=== PATIENT | female | born 1970 | race Caucasian/White ===

== ENCOUNTER → 2020-05-01 16:05 | Outpatient (CLI) | payer SELFPAY ==
[2020-05-01 17:56] LABS: CPK Total, Creatine Kinase 153 U/L (26-192)
== END ==
PROVIDERS: PCP Internal Medicine; Referring Provider Internal Medicine; Visit Provider Internal Medicine
DX: R07.9 Chest pain, unspecified (principal)
CPT/HCPCS: 36415; 82550; 84484

== ENCOUNTER 2022-01-01 14:27 | Outpatient (CLI) | payer SELFPAY ==
[2022-01-01 16:20] LABS: CRP < 2.90 mg/L (0.0-3.0)
[2022-01-04 09:09] LABS: Endomysial Antibody IgA Negative (Negative)
[2022-01-04 13:16] LABS: Immunoglobulin A 144 mg/dL (87-352); t-Transglutaminase IgA <2 U/mL (0-3)
== END 2022-01-01 23:59 | disposition home or self-care (01) ==
PROVIDERS: PCP Internal Medicine; Referring Provider Internal Medicine Gastroenterology; Visit Provider Internal Medicine Gastroenterology
DX: R63.4 Abnormal weight loss (principal)
CPT/HCPCS: 36415; 82784; 83516; 86140; 86255

== ENCOUNTER 2022-04-29 17:55 | Emergency (ER) | payer SELFPAY ==
[2022-04-29 17:59] VITALS: BP 122/85; PULSE 94; RESP 16; TEMP 36.8; O2SAT 97; BMI 16.9
[2022-04-29 18:46] LABS: Absolute Lymphocyte Count 1.67 X10^3/uL (0.83-4.51); Basophil# 0.03 X10^3/uL; Basophil% 0.4 % (0-1); Eosinophil# 0.36 X10^3/uL; Eosinophils% 5.3 % (0-5); Hematocrit 40.1 % (37-47); Hemoglobin 14.1 g/dL (12.0-15.0); Lymphocyte # 1.67 X10^3/ul (0.83-4.51); Lymphocyte % 24.5 % (19-41); Mean Corp Hgb Conc 35.2 g/dL (32-36); Mean Corpuscular Hgb 32.4 pg (27.0-32.0); Mean Corpuscular Volume 92.2 fL (81-99); Mean Platelet Vol. 9.5 fl (6.2-12.0); Monocyte# 0.73 X10^3/uL; Monocyte% 10.7 % (0-10); NRBC Flagged by Analyzer 0 % (0-5); Neutrophil % 58.7 % (47-70); Platelet Count 420 K/mm3 (150-450); Red Blood Count 4.35 M/mm3 (4.2-5.4); White Blood Count 6.8 K/mm3 (4.4-11.0)
[2022-04-29 18:55] LABS: Erythrocyte Sedimentation Rate 8 mm/hr (0-30)
[2022-04-29 19:06] LABS: ALB/GLOB Ratio 1.1 RATIO (0.9-2.4); AST(SGOT) 24 U/L (15-37); Alanine Aminotransfer ALT/SGPT 52 U/L (13-56); Albumin, Serum 3.5 g/dL (3.2-5.0); Alkaline Phosphatase 63 U/L (45-117); Anion Gap 4 (5-15); BUN 13 mg/dL (7-18); BUN/Creat Ratio 17.7 RATIO (10-20); Calcium,Total 8.9 mg/dL (8.5-10.1); Chloride 108 mmol/L (98-107); Creatinine, Serum 0.74 mg/dL (0.55-1.02); EST Glomerular Filtration Rate 88 mL/min (>60); Est Glom Filt Rate - Afr Amer 106 mL/min (>60); Estimated Creatinine Clearance 60.44 ml/min; Globulin 3.1 g/dL (2.2-4.2); Glucose 138 mg/dL (74-106); Lipase 223 U/L (73-393); Potassium 3.3 mmol/L (3.5-5.1); Protein, Total 6.6 g/dL (6.4-8.2); Sodium Level 140 mmol/L (136-145)
--- NOTE | 2022-04-29 19:10 | ED.VIS.GI ---
HPI HPI - GI History of Present Illness Chief Complaint: Abd Pain Informant: patient Abdominal Pain/Flank Pain Onset: Weeks (3 weeks) Context: Sudden Onset Timing: Continuous Quality: Aching Location: Epigastric Current Severity: Mild Maximum Severity: Moderate Worsened by: Nothing Relieved by: Nothing Nausea/Vomiting/Emesis GI Symptom: Positive for Nausea; Negative for Vomiting Diarrhea/Melena/Hematochezia GI Symptom: Positive for Diarrhea (She had no diarrhea since Friday.) Associated Symptoms Associated Symptoms: Negative for Dysuria, Frequency and Hematuria Narrative Narrative: Patient is a 51-year-old woman with no significant past medical history who presents because of worsening epigastric pain that radiates to the right shoulder. The pain to the right shoulder sharp. She denies intolerance to greasy or fried foods. She denies history of biliary disease. She denies respiratory or cardiac symptoms. She denies black or maroon-colored stool. She denies any change in color, consistency or caliber of her stool prior to the diarrhea or since the diarrhea has stopped. She denies dysuria, frequency, urgency or hematuria. She denies any gynecologic symptoms. There is no alleviating, exacerbating or precipitating factors. Prior similar symptoms: Yes Recent Illness/Hospitalization: Yes PFSH PFSH Home Medications estradiol 1 applic VAGINAL MOTH 04/29/22 [History Last Taken Unknown] Allergy/AdvReac Type Severity Reaction Status Date / Time almond Allergy Food Verified 04/29/22 17:58 Allergy egg Allergy Diarrhea Verified 04/29/22 18:39 lactase [From Dairy Aid] Allergy Food Verified 04/29/22 17:57 Allergy meperidine [From Demerol] Allergy Nausea Verified 04/29/22 17:57 wheat Allergy Other Verified 04/29/22 17:58 cyclobenzaprine AdvReac Other Verified 04/29/22 17:57 [From Flexeril] nizatidine [From Axid] AdvReac Other Verified 04/29/22 17:57 Social History (Updated 04/29/22 @ 19:[address] Cleveland Beck MD) household members: spouse Smoking Status: Never smoker alcohol intake: current alcohol intake frequency: holidays/special occasions only substance use type: does not use ROS ROS ED Constitutional Constitutional ED: Reports weight loss and other Details: The weight loss is due to the food allergies and wheat intolerance. ; Denies chills, fever(s), subjective or sweats ENT ENT ED: Denies ear pain, rhinorrhea or sore throat Cardiovascular Cardiovascular: Denies chest pain, palpitations or racing heartbeat Respiratory/Chest Respiratory/Chest: Denies cough, dyspnea or dyspnea on exertion Gastrointestinal Gastrointestinal: Reports abdominal pain and nausea; Denies constipation, diarrhea, melena or vomiting Genitourinary Genitourinary ED: Denies dysuria, hematuria or urinary frequency Musculoskeletal Musculoskeletal: Denies arthralgias, back pain, myalgias or neck pain Integumentary Denies rash Neurologic Neurologic: Denies headache(s) or weakness Endocrine Endocrinology: Denies polydipsia, polyphagia or polyuria Hematologic/Lymphatic Hematologic/Lymphatic: Denies easy bleeding or easy bruising EXAM Physical Exam Const Vital Signs: 04/29/22 17:59 Temperature 98.2 F Temperature Source Temporal Pulse Rate 94 Respiratory Rate 16 Blood Pressure 122/85 H Blood Pressure Mean 97 Pulse Ox 97 Oxygen Delivery Method Room Air Positive well nourished and well developed General Appearance ED: well developed and NAD; Negative for pallor HEENT Reports TM's clear and moist mucous membranes HEENT Narrative: Nares patent. Ears normal. Uvula midline. normocephalic and atraumatic Tympanic Membrane ED: Yes TM's clear Eyes PERRL and EOMs intact bilaterally General Eye ED: Negative for pale conjunctiva or scleral icterus Neck no lymphadenopathy, supple and no JVD Resp normal respiratory effort and clear to auscultation bilaterally GI non-distended and no masses; Negative for non-tender Inspection: Negative for abdominal distention Auscultation: normoactive bowel sounds and hypoactive bowel sounds Palpation: soft and tender epigastric; Negative for guarding, rigid, hepatomegaly, splenomegaly or rebound tenderness present Back/Spine no CVA tenderness Cervical Spine: Negative for cervical spine tenderness Thoracic Spine / Upper Back: Negative for thoracic spinal tenderness Extremity full ROM General Extremety ED: Yes edema; Negative for tenderness General Extremity: edema Neuro CN's II-XII intact bilaterally and no sensory deficits noted Sensorium / Orientation: alert, oriented to person, oriented to place and oriented to time Motor Exam: strength 5/5 throughout Psych mental status grossly normal and thought process normal Skin no wounds General Skin Exam: Negative for jaundice or pallor Lesions: no lesions Rashes: no rashes MDM MDM MDM Narrative Medical decision making narrative: Patient with 3 weeks of epigastric pain. Apparently etiology is unknown. She was sent in by her doctor because of increased pain. She rates it a 6 presently. Will obtain CBC to rule out anemia. Competence metabolic panel to assess electrolytes, anion gap and glucose as well as transaminases and lipase since she does admit to drinking but has not had any drink recently. Lab Data Attestation: I reviewed the patient's lab results. Lab results narrative: Patient's laboratory work-up is unremarkable with exception of a glucose of 138. This would not be the cause of her persistent epigastric pain. She was referred to Dr. Frances. Since she has no guarding, peritoneal findings or clinical Bryson sign imaging was not ordered. Labs: Laboratory Results - last 24 hr 04/29/22 04/29/22 18:40 18:40 WBC 6.8 RBC 4.35 Hgb 14.1 Hct 40.1 MCV 92.2 MCH 32.4 H MCHC 35.2 RDW Std Deviation 41.0 RDW Coeff of Ebony 12.0 Plt Count 420 MPV 9.5 Immature Gran % (Auto) 0.400 Neut % (Auto) 58.7 Lymph % (Auto) 24.5 Clay % (Auto) 10.7 H Eos % (Auto) 5.3 H Baso % (Auto) 0.4 Absolute Neuts (auto) 4.0 Absolute Lymphs (auto) 1.67 Nucleated RBC % 0 ESR 8 Sodium 140 Potassium 3.3 L Chloride 108 H Carbon Dioxide 28.0 Anion Gap 4 L BUN 13 Creatinine 0.74 Estim Creat Clear Calc 60.44 Est GFR (MDRD) Af Amer 106 Est GFR (MDRD) Non-Af 88 BUN/Creatinine Ratio 17.7 Glucose 138 H Calcium 8.9 Total Bilirubin 0.30 AST 24 ALT 52 Alkaline Phosphatase 63 Total Protein 6.6 Albumin 3.5 Globulin 3.1 Albumin/Globulin Ratio 1.1 Lipase 223 Discharge Plan Triage Chief Complaint: Abd Pain ED Provider: Cleveland Beck Dx/Rx/DC Orders Clinical Impression: Continuous epigastric pain Instructions: ED Epigastric Pain Uncertain Cause Prescriptions: No Action estradiol 0.01 % (0.1 mg/gram) Cream 1 applic VAGINAL MOTH RF: 0 Primary Care Provider: Joan Gudino Referrals: Joan Gudino DO [Primary Care Provider] - Ángel Frances DO [STAFF PHYSICIAN] - 5-7 Days Disposition Disposition: Home, Self Care
== END 2022-04-29 20:33 | disposition home or self-care (01) ==
PROVIDERS: Emergency Provider Emergency Medicine; PCP Internal Medicine; Visit Provider Emergency Medicine
DX: R10.13 Epigastric pain (principal)
CPT/HCPCS: 80053; 83690; 85025; 85652; 99283

== ENCOUNTER → 2022-05-01 | Outpatient (CLI) | payer SELFPAY ==
--- NOTE | 2022-05-01 16:29 | US_ITS ---
STUDY: ABDOMINAL ULTRASOUND REASON FOR EXAM: Female, 51 years old. EPIGASTRIC PAIN TECHNIQUE: Transabdominal ultrasound was performed with real-time and static barnett scale imaging. TECHNICAL QUALITY: Adequate. COMPARISON: None. FINDINGS: Visualized liver parenchyma shows homogeneous echotexture. There is no gallbladder stone or polyp. No gallbladder wall thickening or pericholecystic fluid is seen. Sonographic Bryson''s sign has been reported negative. Common bile duct measures a 0.5 cm in diameter. Visualized pancreatic head and body, portal vein, aorta, IVC, and spleen are unremarkable. There appear to be bilateral renal caliectasis. No free fluid is seen in the abdomen. US/Abdomen Complete IMPRESSION: Suggestion of bilateral renal caliectasis. No cholelithiasis. No biliary dilatation. No hydronephrosis. No ascites. Electronically Signed: Lauro Bergman MD at 17:46 EDT ,
== END | disposition home or self-care (01) ==
PROVIDERS: PCP Internal Medicine; Referring Provider Internal Medicine; Visit Provider Internal Medicine
DX: R10.13 Epigastric pain (principal)
CPT/HCPCS: 76700